=== PATIENT | female | born 1990 | race Two or more races ===

== ENCOUNTER 2016-12-01 19:14 | Inpatient (IN) | payer SELFPAY ==
[~2016-12-01] VITALS: Ht 160 cm; Wt 92.5 kg
[2016-12-01 19:30] VITALS: BP 130/84
[2016-12-01] MEDS ORDERED: ACETAMINOPHEN 325 MG TABLET. PO PRN (19:45)
[2016-12-01] MEDS ORDERED: ONDANSETRON PF 4 MG/2 ML VIAL. IV PRN (19:45)
[2016-12-01] MEDS ORDERED: TERBUTALINE 1 MG/ML VIAL. SQ PRN (19:45)
[2016-12-01] MEDS ORDERED: BUTORPHANOL 2 MG/ML VIAL. IV PRN (19:45)
[2016-12-01] MEDS ORDERED: IBUPROFEN 600 MG TABLET. PO PRN (19:45)
[2016-12-01] MEDS ORDERED: 0.9 % SODIUM CHLORIDE 10 ML DISP.SYRIN. IV PRN (19:45)
[2016-12-01] MEDS ORDERED: OXYTOCIN 30 UNIT/500 ML PREMIX 500 ML IV PRN ×2 (19:45)
[2016-12-01] MEDS ORDERED: FENTANYL PF 100 MCG/2 ML VIAL. IV PRN ×2 (19:45)
[2016-12-01] MEDS ORDERED: LIDOCAINE 1% PF 30 ML VIAL. INJ PRN (19:45)
[2016-12-01] MEDS ORDERED: CITRIC ACID/SODIUM CITRATE 30 ML SOLUTION. PO PRN (19:45)
[2016-12-01] MEDS: IV RINGERS,LACTATED 1000ML 1,000 ML IV SCH (20:53)
[2016-12-01 21:04] LABS: BASO % 0 % (0-3); EOS % 1 % (0-3); HEMOGLOBIN 11.7 g/dL (12.0-15.5); LYMPH # 2.4 x10^3/uL (1.0-4.8); LYMPH % 20 % (24-48); MEAN CORPUSCULAR HEMOGLOBIN 31 pg (25-35); MEAN CORPUSCULAR HGB CONC 33 g/dL (31-37); MEAN CORPUSCULAR VOLUME 94 fL (79-100); MONO % 5 % (0-9); NEUT % 74 % (31-73); PLATELET COUNT 185 x10^3/uL (140-400); RED BLOOD COUNT 3.73 x10^6/uL (3.50-5.40); RED CELL DISTRIBUTION WIDTH 13.6 % (11.5-14.5); WHITE BLOOD COUNT 12.5 x10^3/uL (4.0-11.0)
[2016-12-02] MEDS: IV RINGERS,LACTATED 1000ML 1,000 ML IV SCH ×2 (01:16→07:37)
[2016-12-02] MEDS ORDERED: PENICILLIN G K 5,000,000 UNIT in IV NORMAL SALINE 100ML 100 ML IV ONE (07:00)
[2016-12-02] MEDS ORDERED: PNV1TABL25 PO (07:40)
--- NOTE | 2016-12-02 07:56 | PDOC1 ---
OB - History Hx of Present Care: Good Care Ultrasounds: Normal mid trimester US Obstetrical Complications: None Medical Complications: None Past Family/Social History * Past Medical, Surgical, Family and Obstetric Histories reviewed from chart. Rubella: Immune RPR/VDRL: Negative GBS Status: Negative HBsAG: Negative OB - Chief Complaint & HPI Date of Admission: Date of Admission: Dec 01, 2016 at 19:14 Chief Complaint/History : 2 Para: 1 EGA: 38 Reason for admission: active labor, rupture of membranes Admission Nurse Assessment Rev: Yes Problems: OB - Admission Exam Physical Exam Vitals: VS - Last 72 Hours, by Label Date Time Temp Pulse Resp B/P Pulse Ox O2 Delivery O2 Flow Rate FiO2 12/02/16 02:41 18 Room Air 12/01/16 19:30 98.2 62 18 130/84 Room Air 98.2 HEENT: Normal Heart: Regular Rate Lungs: Clear Abdomen: Gravid, Non tender, Soft Extremities: Edema Reflexes: Normal Cervical Dilatation: 3cm Effacement: 75% Station: -2 Membranes: Ruptured Amniotic Fluid: Clear Heart Rate: Normal Accelerations: Accelerations Present Decelerations: No decelerations Contractions on Admission: 6-10 Minutes Apart Intensity: Moderate Text A: 38 wks IUP SROM P: Admit for labor management. CHICA ESQUIVEL Jr, MD Dec 02, 2016 07:56
--- NOTE | 2016-12-02 09:23 | PDOC ---
VAGINAL DELIVERY DATE DATE: 12/02/16 TIME: 09:21 : 2 Para: 2 EGA: 38 VAGINAL DELIVERY: VTX VACCUM ASSISTED: Yes (variable decels with poor pushing efforts) NUMBER OF PULLS one NUMBER OF POP OFFS none MAXIMUM PRESSURE 600 mmHg PLACENTA: Spontaneous 8/9 SEX: Female WEIGHT Weight [ 3475 gm] Nuchal Cord: Yes, Times 1 Amniotic Fluid: Clear PAIN: Natural EPISIOTOMY: No EXTENSION: Yes (2nd degree midline laceration) REPAIRED WITH 2-0 vicryl EBL 300 ml COMPLICATIONS none CONDITION pt. stable Signs of Intrauterine Infectio: None Shoulder Dystocia: No Problems: CHICA ESQUIVEL Jr, MD Dec 02, 2016 09:23
[2016-12-02] MEDS ORDERED: OXYTOCIN 30 UNIT/500 ML PREMIX 500 ML IV PRN (09:30)
[2016-12-02] MEDS ORDERED: HYDROCORTISONE 1% TOPICAL OINTMENT 30GM TUBE. TP PRN (09:30)
[2016-12-02] MEDS ORDERED: MAG HYDROX/ALUMINUM HYD/SIMETH 30 ML ORAL.SUSP PO PRN (09:30)
[2016-12-02] MEDS ORDERED: MMR per PROTOCOL. MC PRN (09:30)
[2016-12-02] MEDS ORDERED: 0.9 % SODIUM CHLORIDE 10 ML DISP.SYRIN. IV PRN (09:30)
[2016-12-02] MEDS ORDERED: ZOLPIDEM 5 MG TABLET. PO PRN (09:30)
[2016-12-02] MEDS ORDERED: DIPHENHYDRAMINE HCL 25 MG CAPSULE PO PRN (09:30)
[2016-12-02] MEDS ORDERED: MAGNESIUM HYDROXIDE 2,400 MG/30 ML ORAL.SUSP. PO PRN (09:30)
[2016-12-02] MEDS ORDERED: DOCUSATE SODIUM 100 MG CAPSULE. PO PRN (09:30)
[2016-12-02] MEDS ORDERED: PHENYLEPH/MINERAL OIL/PETROLAT RECTAL OINTMENT 28GM TUBE. RC PRN (09:30)
[2016-12-02] MEDS ORDERED: BENZOCAINE 20% TOPICAL AEROSOL SPRAY 57GM CAN. TP PRN (09:30)
[2016-12-02] MEDS ORDERED: SIMETHICONE 80 MG TAB.CHEW PO PRN (09:30)
[2016-12-02] MEDS ORDERED: OXYCODONE/APAP 5/325 TABLET. PO PRN (09:30)
[2016-12-02] MEDS ORDERED: ACETAMINOPHEN 325 MG TABLET. PO PRN (09:45)
[2016-12-02] MEDS ORDERED: PENICILLIN G K 2,500,000 UNIT in IV NORMAL SALINE 50ML 50 ML IV SCH (11:00)
[2016-12-02] MEDS: IBUPROFEN 800 MG TABLET. PO PRN (11:28)
[2016-12-02 11:52] VITALS: BP 127/67
[2016-12-02 12:44] VITALS: BP 112/69
[2016-12-02 16:03] VITALS: BP 108/72
[2016-12-02 17:19] VITALS: BP 108/62
[2016-12-02 21:00] VITALS: BP 94/61
[2016-12-03 02:30] VITALS: BP 99/54
[2016-12-03] MEDS: IBUPROFEN 800 MG TABLET. PO PRN ×2 (06:00→23:42)
[2016-12-03 06:01] VITALS: BP 106/57
[2016-12-03] MEDS ORDERED: FERROUS SULFATE 325 MG TABLET. PO SCH (08:00)
[2016-12-03 12:04] VITALS: BP 107/47
--- NOTE | 2016-12-03 13:38 | PDOC ---
OB Progress Note Date of Service 12/03/16 Time of Evaluation 1335 Notes Pt. feeling well. Breast feeding. Lochia minimal. No complaints. Lab Laboratory Tests Test 12/01/16 20:50 White Blood Count 12.5x10^3/uL (4.0-11.0) Red Blood Count 3.73x10^6/uL (3.50-5.40) Hemoglobin 11.7g/dL (12.0-15.5) Hematocrit 35.0% (36.0-47.0) Mean Corpuscular Volume 94fL (79-100) Mean Corpuscular Hemoglobin 31pg (25-35) Mean Corpuscular Hemoglobin Concent 33g/dL (31-37) Red Cell Distribution Width 13.6% (11.5-14.5) Platelet Count 185x10^3/uL (140-400) Neutrophils (%) (Auto) 74% (31-73) Lymphocytes (%) (Auto) 20% (24-48) Monocytes (%) (Auto) 5% (0-9) Eosinophils (%) (Auto) 1% (0-3) Basophils (%) (Auto) 0% (0-3) Neutrophils # (Auto) 9.3x10^3uL (1.8-7.7) Lymphocytes # (Auto) 2.4x10^3/uL (1.0-4.8) Monocytes # (Auto) 0.6x10^3/uL (0.0-1.1) Eosinophils # (Auto) 0.1x10^3/uL (0.0-0.7) Basophils # (Auto) 0.0x10^3/uL (0.0-0.2) RPR Titer Additional Testing Non reactive (Non Reactive) Medications Current Medications Sodium Chloride 3 ml 3 ml QSHIFT PRN IV AFTER MEDS AND BLOOD DRAWS; Start 12/01 at 19:45 Lactated Ringer's (Iv Lactated Ringers) 1,000 ml @ 125 mls/hr Q8H IV Last administered on 12/02/16t 07:37; Start 12/01/16 at 19:42; Stop 12/02/16 at 12:05 ; Status DC Butorphanol Tartrate (Stadol) 2 mg PRN Q1HR PRN IV Severe labor pain; Start 08/07 at 19:45; Stop 12/02/16 at 12:05; Status DC Fentanyl Citrate (Fentanyl 2ml Vial) 50 mcg PRN Q30MIN PRN IV Mild to moderate pain; Start 12/01/16 at 19:45; Stop 12/02/16 at 12:05; Status DC Fentanyl Citrate (Fentanyl 2ml Vial) 100 mcg PRN Q30MIN PRN IV Severe pain Last administered on 12/02/16 02:41; Start 12/01/16 at 19:45; Stop 12/02/16 at 12:05; Status DC Acetaminophen (Tylenol) 650 mg PRN Q6HRS PRN PO MILD PAIN / TEMP; Start at 19:45 Ondansetron HCl (Zofran) 4 mg PRN Q4HRS PRN IV NAUSEA/VOMITING; Start 12/01/16 at 19:45; Stop 12/02/16 at 12:05; Status DC Citric Acid/ Sodium Citrate (Bicitra) 30 ml 1X PRN PRN PO DYSPEPSIA; Start 08/07 at 19:45; Stop 12/02/16 at 12:05; Status DC Terbutaline Sulfate (Brethine) 0.25 mg 1X PRN PRN SQ SEE COMMENTS; Start at 19:45; Stop 12/02/16 at 12:05; Status DC Lidocaine HCl 30 ml 30 ml 1X PRN PRN INJ SEE COMMENTS; Start 12/01/16 at 19:45 ; Stop 12/02/16 at 12:05; Status DC Oxytocin/Sodium Chloride 500 ml @ 0 mls/hr CONT PRN IV SEE I/O RECORD Last administered on 12/02/16 07:36; Start 12/01/16 at 19:45; Stop 12/02/16 at 12:05 ; Status DC Oxytocin/Sodium Chloride (Oxytocin Premix Infusion) 500 ml @ 0 mls/hr CONT PRN PRN IV Post delivery bleeding; Start 12/01/16 at 19:45; Stop 12/02/16 at 12:05; Status DC Ibuprofen 600 mg 600 mg PRN Q6HRS PRN PO PAIN; Start 12/01/16 at 19:45 Penicillin G Potassium [id number] unit/Sodium Chloride 100 ml @ 100 mls/hr 1X ONCE IV Last administered on 12/02/16 06:47; Start 12/02/16 at 07:00; Stop at 12:05; Status DC Penicillin G Potassium/Sodium Chloride (Pfizerpen/Iv Sodium Chloride 0.9% 50ml) 50 ml @ 100 mls/hr Q4H IV ; Start 12/02/16 at 11:00; Stop 12/02/16 at 12:05; Status DC Sodium Chloride 10 ml 10 ml QSHIFT PRN IV AFTER MEDS AND BLOOD DRAWS; Start at 09:30; Stop 12/02/16 at 12:05; Status DC Oxytocin/Sodium Chloride (Oxytocin Premix Infusion) 500 ml @ 62.5 mls/hr CONT PRN IV SEE I/O RECORD; Start 12/02/16 at 09:30; Stop 12/02/16 at 12:05; Status DC Acetaminophen (Tylenol) 650 mg PRN Q6HRS PRN PO MILD PAIN / TEMP; Start at 09:45 Ibuprofen (Motrin) 800 mg PRN Q8HRS PRN PO INFLAMMATION/PAIN PREVENTION Last administered on 12/03/16 06:00; Start 12/02/16 at 09:30 Docusate Sodium (Colace) 100 mg PRN BID PRN PO CONSTIPATION; Start 12/02/16 at 09:30 Magnesium Hydroxide (Milk Of Magnesia) 2,400 mg PRN DAILY PRN PO CONSTIPATION; Start 12/02/16 at 09:30 Al Hydroxide/Mg Hydroxide (Mylanta Plus Xs) 30 ml PRN Q4HRS PRN PO HEARTBURN / GAS; Start 12/02/16 at 09:30 Simethicone (Gas-X) 80 mg PRN AFTMEALHC PRN PO GAS / BLOATING; Start 12/02/16 at 09:30 Diphenhydramine HCl (Benadryl) 25 mg PRN Q6HRS PRN PO ITCHING; Start 12/02/16 at 09:30 Benzocaine (Americaine) 1 spray PRN QID PRN TP TOPICAL PAIN Last administered on 12/02/16 11:29; Start 12/02/16 at 09:30 Phenyleph/Shark Oil/Min Oil/Petrol (Preparation H) 1 gabi PRN QID PRN RC RECTAL PAIN; Start 12/02/16 at 09:30 Hydrocortisone (Cortaid) 1 gabi PRN QID PRN TP PERINEAL PAIN; Start 12/02/16 at 09:30 Ferrous Sulfate (Feosol) 325 mg BIDWMEALS PO ; Start 12/03/16 at 08:00 Zolpidem Tartrate (Ambien) 5 mg PRN QHS PRN PO INSOMNIA, MAY REPEAT X1; Start 12/02/16 at 09:30 Info (Do NOT chart on this placeholder) 1 ea 1X PRN PRN MC SEE COMMENTS; Start 12/02/16 at 09:30 Info (Do NOT chart on this placeholder) 1 ea 1X PRN PRN MC SEE COMMENTS; Start 12/02/16 at 09:30; Stop 12/02/16 at 12:05; Status DC Oxycodone/ Acetaminophen (Percocet 5/325) 2 tab PRN Q4HRS PRN PO MODERATE PAIN , SEVERE PAIN; Start 12/02/16 at 09:30 Active Scripts Active Reported Tablet (Pnv Cmb#95/Ferrous Fumarate/Fa) 1 Each Tablet 1 Tab PO DAILY Exam Abd; soft, non tender, fundus firm Assessment PPD#1 s/p Plan of Care: Continue current Tx, Mgmt CHICA ESQUIVEL Jr, MD Dec 03, 2016 13:38
[2016-12-03 13:44] LABS: BASO % 0 % (0-3); EOS % 1 % (0-3); HEMOGLOBIN 10.7 g/dL (12.0-15.5); LYMPH # 3.2 x10^3/uL (1.0-4.8); LYMPH % 19 % (24-48); MEAN CORPUSCULAR HEMOGLOBIN 32 pg (25-35); MEAN CORPUSCULAR HGB CONC 34 g/dL (31-37); MEAN CORPUSCULAR VOLUME 95 fL (79-100); MONO % 3 % (0-9); NEUT % 78 % (31-73); PLATELET COUNT 210 x10^3/uL (140-400); RED BLOOD COUNT 3.38 x10^6/uL (3.50-5.40); RED CELL DISTRIBUTION WIDTH 13.5 % (11.5-14.5); WHITE BLOOD COUNT 17.5 x10^3/uL (4.0-11.0)
[2016-12-03 14:27] LABS: PLT ESTIMATE ADEQUATE (ADEQUATE); TOXIC GRANULATION SLIGHT
[2016-12-03 18:48] VITALS: BP 103/58
[2016-12-03 20:20] VITALS: BP 113/73
[2016-12-04 05:00] VITALS: BP 115/67
--- NOTE | 2016-12-04 10:08 | PDOC3 ---
OB DISCHARGE SUMMARY DATE OF ADMISSION: 12/02/16 DATE OF DISCHARGE: 12/04/16 REASON FOR ADMISSION: Onset of labor PROCEDURES: Ultrasound INTRAPARTUM PROCEDURES: Spontanous Vag Deliv OPERATIONS: None DISCHARGE DIAGNOSIS: Term Delivered DISCHARGE INFORMATION: Activity, Diet HOSPITAL COURSE Unremarkable CONDITION AT DISCHARGE Stable ULISES LE MD Dec 04, 2016 10:08
[2016-12-04] MEDS ORDERED: HYDR-971 PO (10:10)
[2016-12-04] MEDS ORDERED: NAPR500T3 PO (10:10)
[2016-12-04 10:30] VITALS: BP 114/68
== END 2016-12-04 18:00 | disposition home or self-care (01) | DRG 775 ==
LOC: 3 SO LND 19:14 → OBSVTOIN 19:14 → 3 NORTH 12-02 11:48
PROVIDERS: ADMIT Obstetrics & Gynecology; ATTEND Obstetrics & Gynecology
PROC: 10E0XZZ Delivery of Products of Conception, External Approach (ICD-10-PCS; principal; 2016-12-01)
PROC: 0KQM0ZZ Repair Perineum Muscle, Open Approach (ICD-10-PCS; 2016-12-01)
DX: O69.81X0 Labor and delivery complicated by cord around neck, without compression, not applicable or unspecified (principal); O71.82 Other specified trauma to perineum and vulva; Z37.0 Single live birth; Z3A.38 38 weeks gestation of pregnancy
CPT/HCPCS: 36415; 85007; 85027; 86593; 86850; 86900; 86901; G0378; J2540; J2590; J3010; J7120